=== PATIENT | female | born 1960 | race Caucasian/White ===

== ENCOUNTER → 2023-08-12 09:10 | Outpatient (REF) | payer BC, SELFPAY | LOC: HWWDC 09:10 | PROVIDERS: ATTENDING PHYSICIAN Nurse Practitioner Family | DX: Z12.31 Encounter for screening mammogram for malignant neoplasm of breast (principal) | CPT/HCPCS: 77063; 77067 ==

== ENCOUNTER → 2024-08-16 10:35 | Outpatient (REF) | payer BC, SELFPAY | LOC: HWWDC 10:35 | PROVIDERS: ATTENDING PHYSICIAN Obstetrics & Gynecology Gynecology; FAMILY PHYSICIAN Nurse Practitioner Family | DX: Z12.31 Encounter for screening mammogram for malignant neoplasm of breast (principal); Z13.820 Encounter for screening for osteoporosis | CPT/HCPCS: 77063; 77067; 77080 ==

== ENCOUNTER → 2025-03-29 09:16 | Outpatient (REF) | payer BC, SELFPAY | LOC: HWRAD 09:16 | PROVIDERS: ATTENDING PHYSICIAN Otolaryngology; FAMILY PHYSICIAN Nurse Practitioner Family | DX: J32.4 Chronic pansinusitis (principal); J30.89 Other allergic rhinitis | CPT/HCPCS: 70486 ==